=== PATIENT | female | born 1935 | race Asian ===

== ENCOUNTER 2017-01-29 15:48 | Emergency (ER) | payer MEDICARE ==
[~2017-01-29] VITALS: Ht 147.3 cm; Wt 57.7 kg
[2017-01-29 15:59] VITALS: BP 127/62
== END 2017-01-29 16:35 | disposition home or self-care (01) ==
LOC: ED 15:48
DX: B02.9 Zoster without complications (principal); J02.9 Acute pharyngitis, unspecified; E66.9 Obesity, unspecified; I10 Essential (primary) hypertension; E11.9 Type 2 diabetes mellitus without complications; E78.5 Hyperlipidemia, unspecified; M10.9 Gout, unspecified